=== PATIENT | female | born 2000 | race Caucasian/White ===

== ENCOUNTER 2023-11-08 21:56 | Emergency (ER) | payer MEDICAID ==
[~2023-11-08] VITALS: Ht 152.4 cm; Wt 66.4 kg
[2023-11-08] MEDS ORDERED: hyDROXYzine 50 mg/ml injection ***IM only IM ONE (22:40)
[2023-11-08] MEDS ORDERED: HYDR-3686 PO (22:42)
[2023-11-08] MEDS: hydrOXYzine 25 MG tablet PO ONE (22:55)
[2023-11-08 22:59] VITALS: BP 104/82; PULSE 91; RESP 16; O2SAT 99
== END 2023-11-08 23:04 | disposition home or self-care (01) ==
LOC: ER 21:58
DX: R42 Dizziness and giddiness (principal); T43.225A Adverse effect of selective serotonin reuptake inhibitors, initial encounter; Z79.899 Other long term (current) drug therapy; Y92.89 Other specified places as the place of occurrence of the external cause
CPT/HCPCS: 99283; Q0177